=== PATIENT | female | born 1930 | race Caucasian/White ===

== ENCOUNTER 2017-07-20 11:05 | Emergency (ER) | payer OTHER ==
[2017-07-20] MEDS: ACETAMINOPHEN 500 MG TAB PO ×2 (11:52)
[2017-07-20] MEDS: LORAZEPAM 0.5 MG TAB PO ×4 (12:30→22:12)
[2017-07-20 13:15] LABS: ADD MAN DIFF? NO
[2017-07-20 13:18] LABS: BASOPHIL # 0.1 10^3/ul (0.0-0.1); BASOPHILS % 0.7 % (0.0-2.0); EOSINOPHILS # 0.9 10^3/ul (0.0-0.5); EOSINOPHILS % 6.7 % (0.0-7.0); HEMATOCRIT 40.2 % (37.0-47.0); HEMOGLOBIN 13.2 g/dl (12.0-16.0); LYMPHOCYTES # 3.8 10^3/ul (0.8-2.9); LYMPHOCYTES % 27.1 % (15.0-51.0); MEAN CORPUSCULAR HEMOGLOBIN 31.1 pg (29.0-33.0); MEAN CORPUSCULAR HGB CONC 32.8 g/dl (32.0-37.0); MEAN CORPUSCULAR VOLUME 94.6 fl (82.0-101.0); MEAN PLATELET VOLUME 9.6 fl (7.4-10.4); MONOCYTE # 0.9 10^3/ul (0.3-0.9); MONOCYTES % 6.2 % (0.0-11.0); NEUTROPHIL # 8.2 10^3/ul (1.6-7.5); NEUTROPHILS % 58.4 % (39.0-77.0); PLATELET COUNT 294 10^3/UL (140-415); RED BLOOD COUNT 4.25 10^6/ul (4.20-5.40); RED CELL DISTRIBUTION WIDTH 13.9 % (11.5-14.5)
[2017-07-20 13:36] LABS: ALANINE AMINOTRANSFERASE 16 IU/L (13-69); ALBUMIN 4.1 g/dl (3.3-4.9); ALBUMIN/GLOBULIN RATIO 1.13; ALKALINE PHOSPHATASE 96 IU/L (42-121); ANION GAP 19 (8-16); ASPARTATE AMINO TRANSFERASE 27 IU/L (15-46); BILIRUBIN,INDIRECT 0.2 mg/dl (0-1.1); BILIRUBIN,TOTAL 0.2 mg/dl (0.2-1.3); BLOOD UREA NITROGEN 27 mg/dl (7-20); CALCIUM 9.2 mg/dl (8.4-10.2); CARBON DIOXIDE 22 mmol/L (21-31); CHLORIDE 110 mmol/L (97-110); GLUCOSE 95 mg/dl (70-220); POTASSIUM 3.8 mmol/L (3.5-5.1); SODIUM 147 mmol/L (135-144); TOTAL PROTEIN 7.7 g/dl (6.1-8.1)
[2017-07-20] MEDS: OLANZAPINE 2.5 MG TAB PO ×4 (15:15→20:42)
[2017-07-20] MEDS: CLOBETASOL 0.05% 15 GM CR TOP ×4 (15:15→20:43)
[2017-07-20 15:46] LABS: ETHANOL < 10.0 mg/dl
[2017-07-21] MEDS: CLOBETASOL 0.05% 15 GM CR TOP ×4 (09:02→21:34)
[2017-07-21] MEDS: OLANZAPINE 2.5 MG TAB PO ×6 (09:02→21:34)
[2017-07-21 10:29] LABS: ADD UMIC NO; UR ASCORBIC ACID NEGATIVE (NEGATIVE); UR BILIRUBIN (Dip) NEGATIVE (NEGATIVE); UR BLOOD (Dip) NEGATIVE (NEGATIVE); UR CLARITY CLEAR (CLEAR); UR COLOR YELLOW (YELLOW); UR GLUCOSE (Dip) NEGATIVE (NEGATIVE); UR KETONES (Dip) NEGATIVE (NEGATIVE); UR LEUKOCYTE ESTERASE (Dip) NEGATIVE Leu/ul (NEGATIVE); UR NITRITE (Dip) NEGATIVE (NEGATIVE); UR SPECIFIC GRAVITY (Dip) 1.021 (1.003-1.030); UR TOTAL PROTEIN (Dip) NEGATIVE (NEGATIVE); UR UROBILINOGEN (Dip) 1+ mg/dL (NEGATIVE)
[2017-07-21 10:52] LABS: AMPHETAMINE/METHAMPHETAMINE NEGATIVE (NEGATIVE); BARBITURATES NEGATIVE (NEGATIVE); BENZODIAZEPINES NEGATIVE (NEGATIVE); COCAINE NEGATIVE (NEGATIVE); OPIATES NEGATIVE (NEGATIVE)
[2017-07-21 11:14] LABS: CANNABINOIDS NEGATIVE (NEGATIVE)
[2017-07-21] MEDS: DIPHENHYDRAMINE 25 MG CAP PO ×2 (23:25)
[2017-07-21] MEDS ORDERED: DIPHENHYDRAMINE 50 MG INJ IV ×2 (23:30)
[2017-07-22] MEDS: OLANZAPINE 2.5 MG TAB PO ×6 (09:50→22:52)
[2017-07-22] MEDS: CLOBETASOL 0.05% 15 GM CR TOP ×4 (09:50→23:22)
[2017-07-22] MEDS: OLANZAPINE 5 MG TAB PO ×2 (23:23)
[2017-07-23] MEDS: CLOBETASOL 0.05% 15 GM CR TOP ×4 (09:00→22:25)
[2017-07-23] MEDS: OLANZAPINE 5 MG TAB PO ×4 (11:44→12:15)
[2017-07-23] MEDS: OLANZAPINE 2.5 MG TAB PO ×2 (21:33)
[2017-07-24] MEDS: OLANZAPINE 2.5 MG TAB PO ×3 (09:00→21:00)
[2017-07-24] MEDS: CLOBETASOL 0.05% 15 GM CR TOP ×2 (14:53→21:00)
[2017-07-25] MEDS: OLANZAPINE 2.5 MG TAB PO ×2 (09:00→12:01)
[2017-07-25] MEDS: CLOBETASOL 0.05% 15 GM CR TOP (12:01)
[2017-07-25] MEDS ORDERED: AZITHROMYCIN 250 MG TAB PO (13:00)
== END 2017-07-25 14:32 | disposition home or self-care (01) ==
LOC: E/R 07-25 14:32
DX: L40.9 Psoriasis, unspecified (principal); M25.561 Pain in right knee; M25.562 Pain in left knee; R40.2142 Coma scale, eyes open, spontaneous, at arrival to emergency department; R40.2252 Coma scale, best verbal response, oriented, at arrival to emergency department; R40.2362 Coma scale, best motor response, obeys commands, at arrival to emergency department; I10 Essential (primary) hypertension; I25.10 Atherosclerotic heart disease of native coronary artery without angina pectoris; Z79.82 Long term (current) use of aspirin
CPT/HCPCS: 36415; 70450; 80053; 80307; 81003; 85025; 99283-25